=== PATIENT | female | born 1970 | race Caucasian/White ===

== ENCOUNTER 2019-10-31 13:00 | Inpatient (IN) ==
[2019-10-31] MEDS ORDERED: LR 1,000 ML ONE ×2 (13:44→15:18)
[2019-10-31] MEDS ORDERED: VERSED ONE (14:04)
[2019-10-31] MEDS ORDERED: FENTANYL ONE ×2 (14:04→14:44)
[2019-10-31] MEDS ORDERED: XYLOCAINE-MPF 2% ONE (14:04)
[2019-10-31] MEDS ORDERED: DIPRIVAN 1% ONE ×2 (14:04→14:41)
[2019-10-31] MEDS ORDERED: VANCOMYCIN 1 GM/NS 1 GM/250 ML IVPB ONE (14:17)
[2019-10-31] MEDS ORDERED: NEOSPORIN G.U. IRRIGANT ONE (14:30)
[2019-10-31] MEDS: DILAUDID ONE ×3 (15:16→15:30)
--- NOTE | 2019-10-31 15:44 | OPERATIVE NOTE ---
PROCEDURE DATE: 10/31/2019 PREOPERATIVE DIAGNOSIS: Left clavicle open reduction, internal fixation surgical wound infection, superficial. POSTOPERATIVE DIAGNOSIS: Left clavicle open reduction, internal fixation surgical wound infection, superficial. PROCEDURE: Irrigation and debridement of left superficial surgical wound infection. ANESTHESIA: General. SURGEON: Dr. Escobedo. CHOIR TEACHER: Felix. COMPLICATIONS: None. BLOOD LOSS: Minimal. DESCRIPTION OF PROCEDURE: The patient was brought to the operative suite and placed in supine position. After successful administration of general anesthesia, the left shoulder was prepped and draped in the usual sterile fashion. The wound was opened. Cultures were obtained. Purulent material was debrided. Sutures were visible. Sutures were removed as well in the subcuticular region. Then, the wound was copiously irrigated with normal saline containing irrigant and Vashe irrigation. A Kate drain was placed and then vertical mattress sutures were placed loosely. A sterile dressing was applied. The patient tolerated the procedure well without complication. At the end of the procedure, all counts were correct. The patient was brought to the recovery room in stable condition. cc: Simon Escobedo MD
[2019-10-31] MEDS: LR 1,000 ML IV SCH (17:00)
[2019-10-31] MEDS ORDERED: PERCOCET-5 PO PRN (17:34)
[2019-10-31] MEDS ORDERED: MORPHINE IV PRN (17:37)
[2019-10-31] MEDS ORDERED: VANCOMYCIN IV PER PHARMACY MISC SCH (17:45)
[2019-10-31] MEDS ORDERED: D50W SYRINGE IV PRN (17:45)
[2019-10-31] MEDS: PERCOCET-5 PO PRN (21:27)
[2019-10-31] MEDS: NEURONTIN PO SCH (21:27)
[2019-10-31] MEDS: AMBIEN PO SCH (21:27)
[2019-10-31] MEDS: FLEXERIL PO SCH (21:36)
[2019-10-31] MEDS: LEXAPRO PO SCH (21:36)
[2019-10-31] MEDS: SINGULAIR PO SCH (21:36)
[2019-10-31] MEDS: HUMULIN R SUBQ SCH (21:37)
[2019-10-31] MEDS: PRINIVIL PO SCH (21:37)
[2019-11-01] MEDS: VANCOMYCIN 2 GM in NS 500 ML IV SCH ×2 (02:34→22:08)
[2019-11-01] MEDS: GLUCOPHAGE PO SCH (09:13)
[2019-11-01] MEDS: HUMULIN R SUBQ SCH ×4 (09:13→22:09)
--- NOTE | 2019-11-01 10:41 | ORTHOPAEDICS PROGRESS NOTE ---
DATE: 11/01/2019 SUBJECTIVE: Franny Pedro is a 49-year-old female who is postoperative day 1 from irrigation and debridement of her left clavicle surgical wound. She has no complaints. OBJECTIVE: She is a well-developed, well-nourished female. She is alert, oriented, and cooperative with the exam. The Gram stain was negative. The cultures are pending. ASSESSMENT: Stable left shoulder surgical wound infection. PLAN: We will continue to monitor her cultures. Keep her on vancomycin in the interim. We will change her dressing tomorrow. cc: Simon Escobedo MD
[2019-11-01] MEDS: PERCOCET-5 PO PRN ×2 (11:50→22:07)
[2019-11-01] MEDS: LR 1,000 ML IV SCH (16:48)
[2019-11-01] MEDS: FLEXERIL PO SCH (22:06)
[2019-11-01] MEDS: SINGULAIR PO SCH (22:06)
[2019-11-01] MEDS: AMBIEN PO SCH (22:06)
[2019-11-01] MEDS: PRINIVIL PO SCH (22:07)
[2019-11-01] MEDS: NEURONTIN PO SCH (22:08)
[2019-11-01] MEDS: LEXAPRO PO SCH (22:08)
[2019-11-02] MEDS: HUMULIN R SUBQ SCH ×4 (06:34→21:39)
[2019-11-02] MEDS: GLUCOPHAGE PO SCH (09:01)
--- NOTE | 2019-11-02 10:16 | ORTHOPAEDICS PROGRESS NOTE ---
DATE: 11/02/2019 SUBJECTIVE: Franny Pedro is a 49-year-old female who is postoperative day 2 from incision and drainage of her left shoulder wound. She has no complaints. OBJECTIVE: Her wound is still erythematous, but much less so than prior to the surgery. We pulled the drain. There is minimal drainage. Her cultures thus far cough come back negative so far. Her previous cultures I did in the office grew out Staphylococcus Stephanoascus ciferii which is a yeast. This may just be a spurious culture. ASSESSMENT: Left shoulder wound with possible yeast infection. PLAN: I am going to put her on Diflucan just prophylactically in case it is a yeast. She does have diabetes and would put her at a decreased risk. Her blood sugars have been under better control recently, at least keeping it under 200. We will keep her in the hospital for now and continue her on her vancomycin for now and I will review her cultures tomorrow. cc: Simon Escobedo MD
[2019-11-02] MEDS: DIFLUCAN PO SCH (12:18)
[2019-11-02] MEDS: VANCOMYCIN 2 GM in NS 500 ML IV SCH (16:46)
[2019-11-02] MEDS: LR 1,000 ML IV SCH (20:24)
[2019-11-02] MEDS: SINGULAIR PO SCH (20:25)
[2019-11-02] MEDS: FLEXERIL PO SCH (20:25)
[2019-11-02] MEDS: LEXAPRO PO SCH (20:25)
[2019-11-02] MEDS: PRINIVIL PO SCH (20:25)
[2019-11-02] MEDS: PERCOCET-5 PO PRN (21:48)
[2019-11-02] MEDS: AMBIEN PO SCH (21:49)
[2019-11-02] MEDS: NEURONTIN PO SCH (21:49)
[2019-11-03] MEDS: HUMULIN R SUBQ SCH (06:50)
[2019-11-03 07:21] VITALS: BP 160/97
[2019-11-03 08:27] LABS: AGAP 11; ALB/GLOB RATIO 1.5; ALBUMIN 3.5 g/dL (3.5-5.0); ALKALINE PHOSPHATASE 116 U/L (32-104); BUN 15 mg/dL (8-22); CHLORIDE 106 mmol/L (98-107); COSMO 289; CREATININE 0.9 mg/dL (0.5-0.9); ESTIMATED GFR > 60; GLUCOSE 148 mg/dL (70-104); GOT 54 U/L (10-30); GPT 50 U/L (10-36); POTASSIUM 4.7 mmol/L (3.5-5.1); SODIUM 143 mmol/L (136-145); TCO2 26 mmol/L (25-35); TOTAL BILIRUBIN 0.21 mg/dL (0.20-1.00); TOTAL PROTEIN 5.9 g/dL (6.3-8.3)
[2019-11-03] MEDS: GLUCOPHAGE PO SCH (08:29)
[2019-11-03] MEDS: DIFLUCAN PO SCH (08:29)
--- NOTE | 2019-11-03 08:44 | DISCHARGE SUMMARY ---
ADMISSION DATE: 10/31/2019 DISCHARGE DATE: 11/03/2019 ADMISSION DIAGNOSES: 1. Status post left clavicle open reduction, internal fixation with cellulitis. 2. Diabetes mellitus type 2, uncontrolled. DISCHARGE DIAGNOSIS: Status post left clavicle open reduction, internal fixation with cellulitis, now status post irrigation debridement of left superficial surgical wound infection. PROCEDURES: On 10/31/2019, Dr. Escobedo performed irrigation debridement of left superficial surgical wound infection. HOSPITAL COURSE: Franny Pedro is a 49-year-old female, who on 10/20/2019 Dr. Escobedo performed a left ORIF clavicle on. He saw her postoperatively in the office and things looked good. She removed the perennial dressing and was just doing dry gauze. The next time she saw him in the office, she had erythema and drainage to the incision. She was started on clindamycin. He saw her again on the clindamycin, but things had not improved. She continued to have erythema and drainage. Because of this, it was decided to take her back to the operating room for an irrigation and debridement of the surgical site. Cultures were taken in the office on 10/26 that grew out Stephanoascus ciferrii. On 10/30 in the OR, cultures were taken that grew out Lita albicans. She was started postoperatively on IV vancomycin. However, the cultures came back with no bacteria. The only thing that grew out was the Lita albicans. So, she was started on Diflucan. After 2 doses of the Diflucan, things did improve. We saw her today and her erythema is greatly reduced, and she has minimal serosanguineous drainage. Her current vital signs are temperature 98.5 degrees, pulse 67, respirations 18, blood pressure 160/97. She is 98% on room air. Her sugars have been running anywhere from 100 to 215. We are going to get a complete metabolic panel prior to sending her home. I really just want to evaluate her electrolytes and her liver function before we send her home on the Diflucan. DISCHARGE MEDICATIONS: Diflucan 200 mg p.o. twice a day until yeast infection resolves, Flexeril 20 mg p.o. at bedtime, Lexapro 20 mg p.o. at bedtime, Neurontin 1200 mg p.o. at bedtime, Humulin per sliding scale, Prinivil 10 mg p.o. at bedtime, Glucophage 1000 mg p.o. daily, Singulair 10 mg p.o. at bedtime, Hanover 7.5 mg every 6 hours as needed for pain. DISCHARGE DISPOSITION: She will be discharged home to self-care. I have instructed her to clean that site daily with soap and water. I have encouraged her to dry the area really well and the apply a dry gauze dressing. I have instructed her to call with any worsening of drainage or erythema. I have also instructed her that Lexapro and Diflucan can prolong her QTc interval. So, we are going to watch that. We are also going to check her electrolytes and her liver function prior to her leaving, and we will check that routinely as she is on the Diflucan. We are sending her home on Hanover for pain control. I have told her to take that sparingly. We will follow up in the office with her this to re-evaluate. If there has been no improvement, we may swap her to Micafungin. Hopefully, this won't be necessary. We are going to keep her off work until this resolves. We will reassess her work status on as well. She knows to call with any questions or concerns. Dictated by FOSTER Hanson for Simon Escobedo MD cc: FOSTER Hanson MD [facility]
== END 2019-11-03 11:09 | disposition home or self-care (01) | DRG 863 ==
LOC: OR 13:00 → 4N 13:00 → OBSVTOIN 16:58
PROVIDERS: ADMIT Orthopaedic Surgery; ATTEND Orthopaedic Surgery